=== PATIENT | male | born 1975 | race Two or more races ===

== ENCOUNTER 2023-11-19 13:08 | Outpatient (AMB) | payer OTHER, SELFPAY ==
[2023-11-19 13:20] VITALS: BP 134/86; PULSE 77; O2SAT 95; BMI 34.4
--- NOTE | 2023-11-19 13:20 | MHC.OFFVIS ---
Vital Signs 11/19/23 13:20 Height 5 ft 9 in Weight 233 lb BMI 34.4 BP 134/86 Blood Pressure Location Lt brachial Position Sitting Pulse 77 Pulse Source Pulse Oximeter Pulse Oximetry (%) 95 Oxygen Delivery Method Room Air Intake Visit Reasons: Chronic low back pain Allergies Shellfish Allergy (Intermediate, Uncoded 11/19/23 13:24) Anaphylaxis Medication List - Last Reconciled 11/19/23 by Sakshi Frost gabapentin 300 mg PO TID lidocaine 5% 3 patches topical DAILY nystatin 1 appl topical TID tizanidine 2 mg PO TID PRN HPI Comments Details: Roberto is a very pleasant 40-year-old male who presents to the office today for evaluation management of his chronic right lower back pain Visit was completed with Susana Hoffman for French interpretation Patient reports he has been suffering with this pain for greater than 10 years. Denies inciting injury, fall, trauma. He attributes the pain to his job. He endorses right lower back pain with radiation down the right leg to the foot. He has previously attempted physical therapy without improvement of his symptoms. No previous attempts at chiropractor, acupuncture or massage. He has undergone multiple cortisone injections [place] and here in the [facility]. Most recently underwent injection about 2 years ago that provided him a couple of months of pain relief. He is looking to get another cortisone injection. Denies red flag symptoms including new loss of bowel, bladder or saddle anesthesia. Denies lower extremity weakness MRI reports are reviewed, results as per Pain today is rated as a 6/10, constant. Pain is exacerbated by sitting and walking. In terms of muscle damage condition is described as aching, hot, burning, stabbing, sharp, numb Pain is negatively impacting patient's enjoyment of life, general activity, normal work, sleep and walking Denies current use of anticoagulants Denies implantable device, pacemaker defibrillator Denies current nicotine, tobacco, alcohol or illicit substance use Denies history of diabetes Review of Systems Const All systems reviewed & are unremarkable except as noted in HPI and below Physical Exam Vital Signs: Last Vital Signs Pulse 77 11/19/23 13:20 BP 134/86 11/19/23 13:20 Pulse Ox 95 11/19/23 13:20 Oxygen Delivery Method Room Air 11/19/23 13:20 BMI result Body Mass Index 34.4 General: awake, alert, oriented. Answers questions appropriately. Fully engaged in examination. Skin: warm, dry, intact HEENT: Normocephalic. Hearing intact. Cardiac: External chest normal in appearance. Respiratory: No cough, audible wheezing or stridor. Abdomen: without gross distension. MS: No obvious swelling or deformities. Able to stand on bilateral tiptoes and bilateral heels.? Able to transition from sit to stand unassisted. Ambulates with bilaterally normal heel strike and toe off SLR positive on the right Negative footdrop, negative clonus Nontender over midline lumbar vertebrae and lumbar paraspinal muscles. Tenderness over right L3 vertebrae Facet loading positive Nontender over bilateral PSIS Full lumbar range of motion Neurological: Oriented to person, place, time and situation. Thought process intact. No gait abnormalities appreciated. Psychiatric: Appropriate mood and affect. Good judgment and insight. Results Reviewed Results Reviewed: 05/2022 MRI LS 08/2019 MRI LS Assessment & Plan Assessment & Plan (1) Pain of left heel: Code(s): M79.672 - Pain in left foot Category: Medical (2) Lumbar radiculopathy: Code(s): M54.16 - Radiculopathy, lumbar region Category: Medical Plan Roberto is a very pleasant 48-year-old male who presented to the office today for evaluation and management of his chronic lower back pain History, physical exam and provocative testing consistent with right lumbar radiculopathy Patient has exhausted conservative therapy including PT, NSAIDs, [id number] medications previous attempts at injections all without improvement of his symptoms Discussed options for treatment including diagnostic interventional testing, epidural steroid injections, peripheral nerve stimulation with Sprint, RFA and more permanent neuromodulation. Will schedule for fluoroscopy guided right L3 transforaminal epidural steroid injection with local anesthetic All questions and concerns have been answered and patient agrees with the plan. Follow up after injections and sooner if needed. Orders: Referrals Podiatry Referral M54.16 - Radiculopathy, lumbar region, M79.672 - Pain in left foot Coding Level of Care Code New Pt Level 4 (76464) Complex EM visit Add On G2211 Diagnoses Pain of left heel M79.672 Lumbar radiculopathy M54.16
== END 2023-11-19 13:52 | disposition home or self-care (01) ==
PROVIDERS: PCP Family Medicine; Visit Provider Registered Nurse Emergency
DX: M79.672 Pain in left foot (principal); M54.16 Radiculopathy, lumbar region
CPT/HCPCS: 99204; G2211

== ENCOUNTER → 2023-11-19 13:08 | Outpatient (BNVA) | payer OTHER, SELFPAY | PROVIDERS: PCP Family Medicine; Visit Provider Registered Nurse Emergency | DX: M54.16 Radiculopathy, lumbar region (principal); M79.672 Pain in left foot | CPT/HCPCS: 99202 ==